=== PATIENT | male | born 1970 | race African-American/Black ===

== ENCOUNTER 2017-05-04 10:29 | Emergency (ER) | payer OTHER ==
[~2017-05-04] VITALS: Ht 180.3 cm; Wt 86.2 kg
[2017-05-04] MEDS ORDERED: Ketorolac 60mg Inj IM ONE (12:15)
[2017-05-04 12:35] VITALS: BP 128/77
--- NOTE | 2017-05-04 14:02 | Emergency Room Report ---
History of Present Illness General Chief Complaint: Neck Pain Source: Patient Present Illness HPI Patient presents with 2 weeks of L neck pain which has been at times severe worsening over past few days. He woke up with this problem. Also some throat pain when swallowing. Feverish, but not documented. Min cough. Pain constant and radiates from jaw to base of neck. No problems breathing. Able to swallow. Pain 8/10, aching and sometimes burning. No numbness or weakness. No NVD, dysuria, rashes, other joint pain, change bowels, chest pain, dyspnea. + smoker Denies prior injury. Allergies: Coded Allergies: No Known Allergies (Unverified , 05/04/17) Patient History Past Medical History: see triage record Social History: Reports: smoking Social History Narrative at home, not currently working Reviewed Nursing Documentation: PMH: Agreed, PSxH: Agreed Nursing Documentation-PMH Past Medical History: No Stated History Review of Systems All Other Systems: negative except mentioned in HPI Physical Exam Vital Signs Date Time Temp Pulse Resp B/P (MAP) Pulse Ox O2 Delivery O2 Flow Rate FiO2 05/04/17 10:31 97.9 72 14 130/79 98 05/04/17 12:35 Room Air Sp02 EP Interpretation: reviewed, normal General Appearance: well appearing, no apparent distress, GCS 15 Head: normocephalic Eyes: bilateral eye normal inspection, bilateral eye PERRL ENT: TMs + canals normal, moist mucus membranes, pharyngeal erythema Neck: full range of motion, supple, no meningismus, no bony tend, tender lateral Respiratory: chest non-tender, lungs clear, normal breath sounds Cardiovascular #1: regular rate, rhythm Cardiovascular #2: 2+ radial (R) Gastrointestinal: normal inspection, normal bowel sounds, non tender, no mass, non-distended Musculoskeletal: back normal, gait/station normal, normal range of motion Neurologic: alert, oriented x3, grossly normal Psychiatric: mood/affect normal Skin: normal inspection, warm/dry Medical Decision Making Diagnostic Impression: Primary Impression: Neck pain Additional Impressions: Viral syndrome Spondylosis Qualified Codes: M47.892 - Other spondylosis, cervical region ER Course Patient has 2 problems: neck pain and congestion. DDx: torticollis, strep, viral syndrome, strain, muscle spasm, DJD/radiculopathy amongst others. Evaluation with xrays - both chest and neck - and treatment with analgesics. Xray with DJD. CXR no infiltrates or masses. Radiologist reading: Moderate degenerative changes of the cervical spine are demonstrated. This is characterized by vertebral endplate osteophyte formation and narrowing of intervertebral discs. There is no acute fracture identified. Alignment is normal. The open-mouth odontoid view shows an intact dens and good alignment of the lateral masses with respect to the body of C2. There is no soft tissue swelling. Study is degraded by motion Impression: Moderate spondylosis Improved with treatment. No evidence of exudates - doubt strep or bacterial etiology. Will treat symptomatically. Discussed need for follow up and physical therapy. Patient stable for outpatient observation and treatment. Chest X-Ray Diagnostic Results Chest X-Ray Diagnostic Results : # of Views/Limited/Complete: 2 View Indication: Other EP Interpretation: Yes Interpretation: no consolidation, no effusion, no pneumothorax, no acute cardiopulmonary disease Impression: No acute disease Electronically Signed by: Electronically signed by Noe Hodge MD Other X-Ray Diagnostic Results Other X-Ray Diagnostic Results : X-Ray ordered: C spine # of Views/Limited Vs Complete: 3 View Indication: Pain EP Interpretation: Yes Interpretation: no dislocation, no soft tissue swelling, no fractures, other - DJD Impression: Other Electronically Signed by: Electronically signed by Noe Hodge MD Last Vital Signs Date Time Temp Pulse Resp B/P (MAP) Pulse Ox O2 Delivery O2 Flow Rate FiO2 05/04/17 14:21 74 16 128/83 100 Room Air 05/04/17 12:52 97.8 Status: improved Disposition: HOME, SELF-CARE Condition: Improved Scripts Methocarbamol* (ROBAXIN*) 500 Mg Tablet 500 MG PO TID Y for muscle spasms, #10 TAB 0 Refills Prov: Noe Hodge M.D. 05/04/17 Ibuprofen* (MOTRIN*) 600 Mg Tablet 600 MG ORAL Q6H Y for For Pain, #20 TAB Prov: Noe Hodge M.D. 05/04/17 Tramadol Hcl* (ULTRAM*) 50 Mg Tablet 50 MG ORAL Q6H Y for For Pain, #10 TAB 0 Refills Prov: Noe Hodge M.D. 05/04/17 Referrals: [facility] (PCP) Noe Hodge M.D. May 04, 2017 14:02
[2017-05-04] MEDS ORDERED: TRAMADOL HCL50 MG ORAL (14:05)
[2017-05-04] MEDS ORDERED: ROBAXIN500 MG PO (14:05)
[2017-05-04] MEDS ORDERED: IBUPROFEN600 MG ORAL (14:05)
--- NOTE | 2017-05-04 14:08 | Diagnostic Imaging Report ---
Indication: Chest pain Comparison: None 2 views of the chest obtained. Findings: Cardiomediastinal silhouette and pulmonary vascularity are within normal limits for age. The diaphragmatic contour is smooth and costophrenic angles are sharp. No pleural effusions are identified. The bones are unremarkable. Impression: No acute disease
--- NOTE | 2017-05-04 14:11 | Diagnostic Imaging Report ---
Indication: Neck Pain Findings: 3 views of the cervical spine were obtained. Moderate degenerative changes of the cervical spine are demonstrated. This is characterized by vertebral endplate osteophyte formation and narrowing of intervertebral discs. There is no acute fracture identified. Alignment is normal. The open-mouth odontoid view shows an intact dens and good alignment of the lateral masses with respect to the body of C2. There is no soft tissue swelling. Study is degraded by motion Impression: Moderate spondylosis
[2017-05-04 14:21] VITALS: BP 128/83
== END 2017-05-04 14:24 | disposition home or self-care (01) ==
LOC: EMR 12:26
DX: M54.2 Cervicalgia (principal); B34.9 Viral infection, unspecified; M47.812 Spondylosis without myelopathy or radiculopathy, cervical region
CPT/HCPCS: 71020; 72040; 96372; 99284

== ENCOUNTER 2018-03-27 08:43 | Emergency (ER) | payer OTHER ==
[~2018-03-27] VITALS: Ht 180.3 cm; Wt 86.2 kg
[~2018-03-27 08:43] MED LIST: IBUPROFEN600 MG ORAL; ROBAXIN500 MG PO; TRAMADOL HCL50 MG ORAL
[2018-03-27] MEDS ORDERED: NKM (08:54)
[2018-03-27 08:55] VITALS: BP 105/64
[2018-03-27] MEDS ORDERED: BENADRYL25 MG ORAL (09:23)
[2018-03-27] MEDS ORDERED: PREDNISONE20 MG ORAL (09:23)
[2018-03-27 09:28] VITALS: BP 105/64
--- NOTE | 2018-03-27 09:28 | Emergency Room Report ---
History of Present Illness General Chief Complaint: Skin Rash/Abscess Source: Patient Present Illness HPI Patient presents with report of episode where he had increased itchiness to the bilateral lower legs he also had itching sensation to the bilateral hands This happened yesterday patient at that time also felt his tongue was swollen Most of the symptoms have started to improve Denies any shortness of breath Denies any difficulty swallowing Patient also reports a specific area in the mid chest area where he was concerned about a possible insect bite Denies any neck pain or photophobia Allergies: Coded Allergies: No Known Allergies (Unverified , 05/04/17) Patient History Past Medical History: see triage record Pertinent Family History: none Reviewed Nursing Documentation: PMH: Agreed; PSxH: Agreed Nursing Documentation-PMH Past Medical History: No Stated History Review of Systems All Other Systems: negative except mentioned in HPI Physical Exam Vital Signs Date Time Temp Pulse Resp B/P (MAP) Pulse Ox O2 Delivery O2 Flow Rate FiO2 03/27/18 08:48 98.5 99 14 105/64 97 Room Air 98.4 Sp02 EP Interpretation: reviewed, normal General Appearance: well appearing, no apparent distress Head: normocephalic, atraumatic Eyes: bilateral eye PERRL, bilateral eye EOMI ENT: hearing grossly normal, normal pharynx, TMs + canals normal, uvula midline Neck: full range of motion, supple, no meningismus, no bony tend Respiratory: lungs clear, normal breath sounds, no rhonchi, no respiratory distress, no retraction, no accessory muscle use Cardiovascular #1: normal peripheral pulses, regular rate, rhythm, no edema, no gallop, no JVD, no murmur Gastrointestinal: normal bowel sounds, non tender, soft, no mass, no organomegaly, non-distended, no guarding, no hernia, no pulsatile mass, no rebound Genitourinary: no CVA tenderness Musculoskeletal: normal inspection Neurologic: oriented x3, responsive, glass forming engineer III-XII nml as tested, motor strength/ tone normal, sensory intact Psychiatric: mood/affect normal Skin: warm/dry, palpation normal, other - Small lesion just at the mid point of the chest small scab formation, appears to be likely insect bite no surrounding cellulitis Lymphatic: normal inspection, no adenopathy Medical Decision Making Diagnostic Impression: Primary Impression: insect bite Additional Impression: possible allergic reaction ER Course I cannot appreciate any obvious dermatitis currently Patient seems to have improved with the symptoms however he still has some mild diffuse itching Patient at this time is being symptomatically treated There was a small lesion in the mid chest with a central scab formation possibly insect bite Otherwise no surrounding cellulitis patient is stable for close follow-up Last Vital Signs Date Time Temp Pulse Resp B/P (MAP) Pulse Ox O2 Delivery O2 Flow Rate FiO2 03/27/18 08:55 98.4 14 105/64 97 Room Air 98.4 03/27/18 08:48 99 Status: unchanged Disposition: HOME, SELF-CARE Condition: Stable Scripts Diphenhydramine Hcl* (BENADRYL*) 25 Mg Capsule 25 MG ORAL Q6H PRN for Itching, #20 CAP Prov: Araceli Singh DO 03/27/18 Prednisone* (PREDNISONE*) 20 Mg Tablet 20 MG ORAL BID, #8 TAB Prov: Araceli Singh DO 03/27/18 Referrals: [facility] (PCP) Patient Instructions: Rash, Insect Bite, [id number] Additional Instructions: Patient is provided with the discharge instructions notified to follow up with primary doctor in the next 2-3 days otherwise return to the er with any worsening symptoms. Please note that this report is being documented using [employer] technology. This can lead to erroneous entry secondary to incorrect interpretation by the dictating instrument. Araceli Singh DO Mar 27, 2018 09:28
[2018-03-28] MEDS ORDERED: NKM (09:36)
[2018-03-28] MEDS ORDERED: CEPHALEXIN500 MG ORAL (10:07)
== END 2018-03-27 09:28 | disposition home or self-care (01) ==
LOC: EMR 09:04
DX: S80.862A Insect bite (nonvenomous), left lower leg, initial encounter (principal); S80.861A Insect bite (nonvenomous), right lower leg, initial encounter; S60.562A Insect bite (nonvenomous) of left hand, initial encounter; S60.561A Insect bite (nonvenomous) of right hand, initial encounter; W57.XXXA Bitten or stung by nonvenomous insect and other nonvenomous arthropods, initial encounter; Y93.9 Activity, unspecified; Y92.9 Unspecified place or not applicable
CPT/HCPCS: 99284

== ENCOUNTER 2018-04-05 18:05 | Emergency (ER) | payer OTHER ==
[~2018-04-05] VITALS: Ht 180.3 cm; Wt 86.2 kg
[~2018-04-05 18:05] MED LIST changes: +BENADRYL25 MG ORAL; +CEPHALEXIN500 MG ORAL; +NKM; +PREDNISONE20 MG ORAL
[2018-04-05 18:35] VITALS: BP 121/74
[2018-04-05] MEDS ORDERED: BACITRACIN-P28.35 GM TP (18:43)
--- NOTE | 2018-04-05 18:51 | Emergency Room Report ---
History of Present Illness General Chief Complaint: Wound Recheck/Suture Removal Source: Patient Present Illness HPI 47-year-old male patient presents ER complaining of open wound on his chest. Patient was previously seen in the ER 2 times for similar symptoms. Was previously discharged with Keflex that she has been using take since that time. states that since previous visit he went swimming a few days ago and then it "popped open" and he" "pushed stuff out and drained it". states secondary palpable nodule noted near abscess on chest, appeared since previous visit. Several days ago since previous visits the ER.States that he saw an urgent care provider last night and was provided with a shot of ceftriaxone for the infection and advised him to keep it clean. Reports here today to have the wound checked because it has opened and drained since his previous visit. denies fever, chest pain, shortness of breath, abdominal pain, fainting, vomiting. Denies history of diabetes. Allergies: Coded Allergies: No Known Allergies (Unverified , 05/04/17) Patient History Past Medical History: see triage record Reviewed Nursing Documentation: PMH: Agreed; PSxH: Agreed Nursing Documentation-PMH Past Medical History: No Stated History Review of Systems All Other Systems: negative except mentioned in HPI Physical Exam Vital Signs Date Time Temp Pulse Resp B/P (MAP) Pulse Ox O2 Delivery O2 Flow Rate FiO2 04/05/18 18:25 98.4 99 18 121/74 98 Room Air 98.4 Sp02 EP Interpretation: reviewed, normal General Appearance: well appearing, no apparent distress, alert, GCS 15, non- toxic Head: normocephalic, atraumatic Eyes: bilateral eye normal inspection, bilateral eye PERRL ENT: hearing grossly normal, normal pharynx, no angioedema, normal voice, uvula midline, moist mucus membranes Neck: full range of motion Respiratory: lungs clear, normal breath sounds, no rhonchi, no respiratory distress, no accessory muscle use, no wheezing, speaking full sentences Musculoskeletal: back normal, digits/nails normal, gait/station normal, normal range of motion, non-tender Neurologic: normal inspection Psychiatric: mood/affect normal Skin: other - chest: 1cm open drained abscess, no active drainage, no surrounding erythema or edema; 1cm palpable nodule, no fluctuance or induration , no surrounding erythema or edema Medical Decision Making PA Attestation Dr. Pugh is my supervising Physician whom patient management has been discussed with. Diagnostic Impression: Primary Impression: Encounter for wound re-check ER Course Pt. presents to the ED requesting wound check of Ddx considered but are not limited to cellulitis, abscess, wound check, folliculitis. No fusiform swelling, no TTP along flexor tendon, no pain wtih extension, finger not held in flexion, low suspicion for flexor tenosynovitis. Vital signs: are WNL, pt. is afebrile Ordered Bacitrain. ER COURSE: 1 cm open abscess on chest, no surrounding erythema or edema, no active drainage , will clean and dress in the ER. 1 cm palpable nodule on anterior chest, no surrounding erythema or edema. no fluctuance or induration, possible scar tissue, does not require drainage at this time . advised patient to continue to monitor and follow up with PCP. Wound irrigated with copious amounts of saline and redressed with sterile gauze. Apply Neosporin to wound to reduce appearance of scar. will provide topical bacitracin, continue taking Keflex. follow with PCP for further treatment and referral. Keep wound covered. Patient seen by Dr. Pugh, agrees with assessment and plan. DISCHARGE: Rx provided for Bacitracin Patient instructed to continue with medications per initial ER provider instructions. At this time pt. is stable for d/c to home. Patient resting comfortably, in no acute distress, nontoxic appearing. Will provide printed patient care instructions and any necessary prescriptions. Care plan and follow up instructions have been discussed with the patient prior to discharge. Patient instructed to follow-up with primary care provider for further treatment and referral. Patient questions asked and answered. ER precautions given. Patient instructed to return to ER immediately for any new or worsening of symptoms including but not limited to fever, worsening of pain symptoms. - Please note that this Emergency Department Report was dictated using [employer] stripper technology software, occasionally this can lead to erroneous entry secondary to interpretation by the dictation equipment. Last Vital Signs Date Time Temp Pulse Resp B/P (MAP) Pulse Ox O2 Delivery O2 Flow Rate FiO2 04/05/18 18:35 98.4 92 18 121/74 98 Room Air 98.4 Disposition: HOME, SELF-CARE Condition: Stable Scripts Bacitracin/Polymyxin B Sulfate (BACITRACIN-POLYMYXIN OINTMENT) 28.35 Gm Oint...g. 1 APPLIC TP BID, #28 GM Prov: Balwinder Garcia 04/05/18 Patient Instructions: Abscess, [id number], Wound Check Additional Instructions: Followup with primary care provider in 3 -5 days. Discuss referral to methods specialist engineer. Keep clean and dry. Take medications as directed. Patient questions asked and answered. ER precautions given, patient instructed to return to ER immediately for any new or worsening of symptoms. Balwinder Garcia Apr 05, 2018 18:51
[2018-04-05 18:52] VITALS: BP 121/74
== END 2018-04-05 18:55 | disposition home or self-care (01) ==
LOC: EMR 18:45
DX: Z48.817 Encounter for surgical aftercare following surgery on the skin and subcutaneous tissue (principal); L02.213 Cutaneous abscess of chest wall
CPT/HCPCS: 99283

== ENCOUNTER 2018-08-09 07:51 | Emergency (ER) | payer OTHER ==
[~2018-08-09] VITALS: Ht 180.3 cm; Wt 90.7 kg
[~2018-08-09 07:51] MED LIST changes: +BACITRACIN-P28.35 GM TP
[2018-08-09] MEDS ORDERED: NKM (07:59)
[2018-08-09 08:00] VITALS: BP 133/85
--- NOTE | 2018-08-09 08:00 | NUR ---
ED Nurse Note: A/Ox4. Ambulated in to ER due to left shoulder pain radiating to left neck x3 weeks. No injury and no trauma noted. No recent heavy lifting.
--- NOTE | 2018-08-09 08:01 | NUR ---
ED Nurse Note: pt able to perform full ROM of neck
[2018-08-09] MEDS ORDERED: Ketorolac 30mg Inj IM ONE (08:15)
[2018-08-09] MEDS ORDERED: Methocarbamol 750mg tab ORAL ONE (08:15)
[2018-08-09] MEDS ORDERED: LIDODERM700 M1 TOPIC (08:19)
[2018-08-09] MEDS ORDERED: ROBAXIN-750750 MG PO (08:19)
[2018-08-09] MEDS ORDERED: IBUPROFEN600 MG ORAL (08:19)
--- NOTE | 2018-08-09 08:25 | NUR ---
ED Nurse Note: Patient is being discharged from medical care. Awake, alert and oriented x4. After care instructions, including prescriptions. Patient verbalized understanding of After care instructions. Patient signed patient consent in the medical record for patient destination upon discharge. All medical devices such as IV and ID band were removed. Patient ambulated out with all personal belongings with steady gait.
[2018-08-09 08:26] VITALS: BP 133/85
--- NOTE | 2018-08-09 09:23 | Emergency Room Report ---
History of Present Illness General Chief Complaint: Pain Source: Patient Present Illness HPI 48-year-old male presents ED for evaluation. Patient complaining of left-sided neck pain 3 weeks. Denies trauma. Pain is throbbing, 8 out of 10, nonradiating. States he's had similar pain in the past it was seen here. Denies fevers or chills. Denies headache. Denies photophobia. Denies nausea or vomiting. No other aggravating relieving factors. Denies any other associated symptoms Allergies: Coded Allergies: No Known Allergies (Unverified , 08/09/18) Patient History Past Medical History: none Past Surgical History: none Pertinent Family History: none Social History: Denies: smoking, alcohol use, drug use Immunizations: UTD Reviewed Nursing Documentation: PMH: Agreed; PSxH: Agreed Nursing Documentation-PMH Past Medical History: No Stated History Review of Systems All Other Systems: negative except mentioned in HPI Physical Exam Vital Signs Date Time Temp Pulse Resp B/P (MAP) Pulse Ox O2 Delivery O2 Flow Rate FiO2 08/09/18 07:54 98.4 77 16 133/85 98 Room Air Sp02 EP Interpretation: reviewed, normal General Appearance: no apparent distress, alert, GCS 15, non-toxic Head: normocephalic ENT: hearing grossly normal, normal pharynx, no angioedema, normal voice Neck: full range of motion, supple, no meningismus, supple/symm/no masses, tender lateral Respiratory: normal inspection Cardiovascular #1: normal inspection Gastrointestinal: normal inspection Rectal: deferred Genitourinary: no CVA tenderness Musculoskeletal: normal inspection Neurologic: alert, oriented x3, responsive, motor strength/tone normal, sensory intact, speech normal Psychiatric: normal inspection Skin: normal inspection Lymphatic: normal inspection Medical Decision Making Diagnostic Impression: Primary Impression: Neck strain Qualified Codes: S16.1XXA - Strain of muscle, fascia and tendon at neck level , initial encounter ER Course Hospital Course 48-year-old male presents ED complaining of left-sided neck pain x 3 weeks Differential diagnoses include: neck strain, shoulder strain, dislocation/ fracture Clinical course Patient placed on stretcher. After initial history and physical exam reveals middle-aged male in no acute distress. On exam there is no midline neck tenderness or shoulder tenderness. Full range of motion to the shoulder. There is pain over the left SCM/trapezius. Consistent with a neck strain There is no nuchal rigidity. No fever no headache suggestive of meningismal process. No midline neck tenderness. I believe no imaging is required. Patient had similar presentation in 2017 I ordered Toradol/robaxin/lidoderm in ED. Upon reassessment pain is improved Diagnosis - neck strain Stable and discharged to home with prescription for treatment motrin, robaxin, lidoderm. no heavy lifting. Followup with PMD. Return to ED if symptoms recur or worsen Last Vital Signs Date Time Temp Pulse Resp B/P (MAP) Pulse Ox O2 Delivery O2 Flow Rate FiO2 08/09/18 08:26 98.4 86 16 133/85 98 Room Air Status: improved Disposition: HOME, SELF-CARE Condition: Stable Scripts Lidocaine (Lidoderm) 1 Each Adh..patch 1 PATCH TOPIC DAILY, #7 PATCH 0 Refills Patch(es) may remain in place for up to 12 hours in any 24-hour period. Prov: Johnson Pugh MD 08/09/18 Methocarbamol* (ROBAXIN-750*) 750 Mg Tablet 750 MG PO TID, #21 TAB 0 Refills Prov: Johnson Pugh MD 08/09/18 Ibuprofen* (MOTRIN*) 600 Mg Tablet 600 MG ORAL Q8H PRN for For Pain, #30 TAB 0 Refills Prov: Johnson Pugh MD 08/09/18 Referrals: [facility] (PCP) Patient Instructions: Cervical Strain and Sprain With Rehab-Sports[facility] Johnson Pugh MD Aug 09, 2018 09:23
== END 2018-08-09 08:31 | disposition home or self-care (01) ==
LOC: EMR 08:24
DX: S16.1XXA Strain of muscle, fascia and tendon at neck level, initial encounter (principal); X58.XXXA Exposure to other specified factors, initial encounter; Y92.9 Unspecified place or not applicable
CPT/HCPCS: 96372; 99283; J1885

== ENCOUNTER 2019-08-07 08:49 | Emergency (ER) | payer OTHER ==
[~2019-08-07] VITALS: Ht 180.3 cm; Wt 90.7 kg
[~2019-08-07 08:49] MED LIST changes: +LIDODERM700 M1 TOPIC; +ROBAXIN-750750 MG PO
[2019-08-07 08:51] VITALS: BP 124/81
--- NOTE | 2019-08-07 09:00 | NUR ---
ED Nurse Note: Dr. Pugh at bedside.
--- NOTE | 2019-08-07 09:03 | NUR ---
ED Nurse Note: Patient arrived to ED by car from home c/o headache in the front upper part of his head x 1week. Patient states he had a cold previously about a month ago. Patient AxO x 4, VSS. No s/s of acute distress. Bed in lowest position.
[2019-08-07 09:05] VITALS: BP 124/81
[2019-08-07] MEDS ORDERED: PREDNISONE20 MG ORAL ×3 (09:25→09:43)
[2019-08-07] MEDS ORDERED: AMOXICILLIN500 MG ORAL ×3 (09:25→09:43)
--- NOTE | 2019-08-07 09:43 | NUR ---
ER DISCHARGE NOTE: Patient is cleared to be discharged per ERMD. Patient was given dc and prescription instructions. Patient was able to verbalize understanding. ID band removed without complications. Patient is able to ambulate with steady gait with all his belongings.
--- NOTE | 2019-08-07 10:08 | Emergency Room Report ---
History of Present Illness General Chief Complaint: Headache Source: Patient Present Illness HPI 49-year-old male presents ED for evaluation. Complaining of headache x10 days. Pain is sharp, 7 out of 10, nonradiating. Localized to forehead, maxillary area. Behind eyes. States he has been feeling congested with runny nose and cough for the last 10 days. States has been taking [id number] medication without relief. Denies fevers or chills. Denies neck stiffness. No other aggravating relieving factors. Denies any other associated symptoms Allergies: Coded Allergies: No Known Allergies (Unverified , 08/09/18) Patient History Past Medical History: none Past Surgical History: none Pertinent Family History: none Social History: Denies: smoking, alcohol use, drug use Immunizations: UTD Reviewed Nursing Documentation: PMH: Agreed; PSxH: Agreed Nursing Documentation-PMH Past Medical History: No Stated History Review of Systems All Other Systems: negative except mentioned in HPI Physical Exam Vital Signs Date Time Temp Pulse Resp B/P (MAP) Pulse Ox O2 Delivery O2 Flow Rate FiO2 08/07/19 08:51 98.2 78 16 124/81 (95) 97 Room Air Sp02 EP Interpretation: reviewed, normal General Appearance: no apparent distress, alert, GCS 15, non-toxic Head: normocephalic, atraumatic Eyes: bilateral eye normal inspection, bilateral eye PERRL ENT: hearing grossly normal, normal pharynx, no angioedema, normal voice Neck: full range of motion, supple/symm/no masses Respiratory: chest non-tender, lungs clear, normal breath sounds, speaking full sentences Cardiovascular #1: regular rate, rhythm, no edema Cardiovascular #2: 2+ carotid (R), 2+ carotid (L), 2+ radial (R), 2+ radial (L) , 2+ dorsalis pedis (R), 2+ dorsalis pedis (L) Gastrointestinal: normal bowel sounds, non tender, soft, non-distended, no guarding, no rebound Rectal: deferred Genitourinary: normal inspection, no CVA tenderness Musculoskeletal: back normal, normal range of motion, gait/station normal, non- tender Neurologic: alert, motor strength/tone normal, oriented x3, sensory intact, responsive, speech normal Psychiatric: judgement/insight normal, memory normal, mood/affect normal, no suicidal/homicidal ideation Reflexes: 3+ bicep (R), 3+ bicep (L), 3+ tricep (R), 3+ tricep (L), 3+ knee (R) , 3+ knee (L) Lymphatic: no adenopathy Medical Decision Making Diagnostic Impression: Primary Impression: Sinusitis Qualified Codes: J01.00 - Acute maxillary sinusitis, unspecified ER Course Hospital Course 49 yo M presents with headache, runny nose and congetion x 10 days Differential diagnoses include: URI, pharyngitis, otitis media, asthma Clinical course Patient placed on stretcher. After initial history, physical exam reveals a middle aged male in no acute distress. Bilateral TM unremarkable. No pharyngeal erythema. No tonsillar exudates. No lymphadenopathy. lungs clear. abdomen soft. no nuchal ridigity. no focal neurolgical deficits Clinical findings consistent with sinusitits. Symptoms have persisted for 10 days without resolution with [id number] medication. Will add antibiotics and prednisone. Safe for discharge for close outpatient follow-up. States he has a PMD Diagnosis - sinusitits Stable and discharged home with prescriptions for Prednisone, Amoxicillin. Instructed to followup with PMD. Return to ED if symptoms recur or worsen Last Vital Signs Date Time Temp Pulse Resp B/P (MAP) Pulse Ox O2 Delivery O2 Flow Rate FiO2 08/07/19 09:05 98.2 16 124/81 97 Room Air 08/07/19 08:51 78 Status: improved Disposition: HOME, SELF-CARE Condition: Stable Scripts Amoxicillin* (AMOXIL*) 500 Mg Capsule 500 MG ORAL THREE TIMES A DAY, #21 CAP Prov: Johnson Pugh MD 08/07/19 Prednisone* (PREDNISONE*) 20 Mg Tablet 40 MG ORAL DAILY, #10 TAB Prov: Johnson Pugh MD 08/07/19 Patient Instructions: Sinus Headache Johnson Pugh MD Aug 07, 2019 10:08
== END 2019-08-07 09:45 | disposition home or self-care (01) ==
LOC: EMR 09:10
DX: J01.00 Acute maxillary sinusitis, unspecified (principal)
CPT/HCPCS: 99282

== ENCOUNTER 2019-10-07 11:02 | Emergency (ER) | payer OTHER ==
[~2019-10-07] VITALS: Ht 180.3 cm; Wt 90.7 kg
[~2019-10-07 11:02] MED LIST changes: +AMOXICILLIN500 MG ORAL
[2019-10-07 11:15] VITALS: BP 134/94
--- NOTE | 2019-10-07 11:18 | NUR ---
ED Nurse Note: PT STATES HAVING BLURRY VISION TO BILATERAL EYES SINCE HE FELT A SPIDER WENT INTO HIS EYES ON LAST THURSDAY. DENIES ITCHING, BURNING OR ANY DISCHARGE FROM BILATERAL EYES. NO REDNESS OR SWELLING NOTED. VISION ACUITY WERE 20/20 ON BOTH EYES. NAD NOTED.
[2019-10-07] MEDS ORDERED: Fluorescein Strips BOTH EYES ONE (12:00)
[2019-10-07] MEDS ORDERED: Tetracaine 0.5% Opth 4ml Soln BOTH EYES ONE (12:00)
--- NOTE | 2019-10-07 12:00 | NUR ---
ED Nurse Note: ACCUCHECK DONE PER JAYSON'S VERBAL ORDER, BS 92.
[2019-10-07] MEDS ORDERED: ERYTHROMYCIN1 G1 OP (12:15)
[2019-10-07 12:22] VITALS: BP 134/94
--- NOTE | 2019-10-07 13:53 | Emergency Room Report ---
History of Present Illness General Chief Complaint: Eye Problems Source: Patient Present Illness HPI 49-year-old male presented for blurry vision. He states at tarantula was placed on his face 2 days ago and got some hairs in his eyes. Since that time he has had some eye irritation and itchiness. Mild blurry vision. Patient is prescribed corrective eyewear however does not wear his glasses as he should. Denies any eye pain. No purulent drainage from the eye. Allergies: Coded Allergies: No Known Allergies (Unverified , 08/09/18) Patient History Reviewed Nursing Documentation: PMH: Agreed; PSxH: Agreed Nursing Documentation-PM Past Medical History: No Stated History Hx Cardiac Problems: No Hx Hypertension: No Hx Pacemaker: No Hx Asthma: No Hx COPD: No Hx Diabetes: No Hx Cancer: No Hx Gastrointestinal Problems: No Hx Dialysis: No History Of Psychiatric Problem: No Hx Neurological Problems: No Hx Cerebrovascular Accident: No Hx Seizures: No Review of Systems All Other Systems: negative except mentioned in HPI Physical Exam Vital Signs Date Time Temp Pulse Resp B/P (MAP) Pulse Ox O2 Delivery O2 Flow Rate FiO2 10/07/19 11:09 98.4 92 18 134/94 (107) 98 Room Air Sp02 EP Interpretation: reviewed, normal General Appearance: well appearing, no apparent distress Head: normocephalic, atraumatic Eyes: bilateral eye normal inspection, bilateral eye PERRL, bilateral eye fluoroscene uptake, bilateral eye EOMI ENT: hearing grossly normal, moist mucus membranes Neck: full range of motion, supple Respiratory: lungs clear, normal breath sounds, no rhonchi, no respiratory distress, no retraction, no wheezing Cardiovascular #1: normal peripheral pulses, regular rate, rhythm, no murmur Gastrointestinal: non tender, soft, non-distended, no guarding Neurologic: alert, oriented x3, no focal defects Skin: normal color, warm/dry Medical Decision Making Diagnostic Impression: Primary Impression: Conjunctivitis ER Course Patient presented for blurry vision. Differential included but not limited to corneal abrasion, allergic conjunctivitis, bacterial conjunctivitis to name a few. On exam patient in no acute distress. He does have prescription eyewear but does not wear them. On my exam there was no obvious corneal abrasion. I do suspect a mild allergic conjunctivitis secondary to possibly this contact with a tarantula. Will prescribe patient antibiotic topical ointment and have him follow-up with his primary physician. Also recommended wearing his prescription eyewear. Stable for discharge Last Vital Signs Date Time Temp Pulse Resp B/P (MAP) Pulse Ox O2 Delivery O2 Flow Rate FiO2 10/07/19 12:22 98.4 92 18 134/94 98 Room Air Disposition: HOME, SELF-CARE Condition: Stable Scripts Erythromycin Base (Erythromycin) 1 Gm Oint...g. 1 GM OP THREE TIMES A DAY for 7 Days, #10 GM Prov: Preston Cartagena M.D. 10/07/19 Patient Instructions: Allergic Conjunctivitis, [id number] Additional Instructions: Please wear your glasses as previously prescribed. Patient is instructed to follow-up with her primary care doctor, primary care clinic or [facility] in 1 to 2 days. Patient instructed to return for any worsening symptoms or concerns. Please note that the documentation in this note was used with [employer] dictation technology. Pleae be advised that this may lead to erroneous text due to misinterpretation by the dictation software Preston Cartagena M.D. Oct 07, 2019 13:53
== END 2019-10-07 12:23 | disposition home or self-care (01) ==
LOC: EMR 11:30
DX: H10.9 Unspecified conjunctivitis (principal)
CPT/HCPCS: 82962; Z7502; 99282